=== PATIENT | female | born 1995 | race Caucasian/White ===

== ENCOUNTER 2021-12-03 13:38 | Emergency (ER) | payer OTHER, SELFPAY ==
--- NOTE | 2021-12-03 13:42 | ED.ANIMALBIT ---
HPI - Animal Bite General Chief Complaint: Skin/Abscess/Foreign Body Stated Complaint: Dog bite Time Seen by Provider: 12/03/21 13:42 Source: patient and RN notes reviewed History of Present Illness HPI narrative: Patient is a 25-year-old female who presents the urgent care with complaints of a dog bite to the left thumb. Patient states that it occurred at work at approximately 11 AM and she did clean it with plain Dial soap and water. Patient states that the dog is up-to-date on his vaccinations and rabies shot. Patient is not up-to-date on her tetanus. Patient denies of any other injuries or dog bites. No other acute complaints. No acute distress noted. Patient aware of the plan of care. Some parts of this dictation were generated by voice recognition software and may contain typographical and/or grammatical inaccuracies. Related Data Home Medications Medication Instructions Recorded Confirmed fluvoxamine mg 12/03/21 levonorgestrel [Mirena] INTRAUTERINE 12/03/21 lithium carbonate mg 12/03/21 trazodone 12/03/21 Allergies Allergy/AdvReac Type Severity Reaction Status Date / Time Penicillins Allergy Hives Verified 12/03/21 13:51 Review of Systems Review of Systems: CONSTITUTIONAL: Denies fever, chills, or sweats. EYES: Denies visual changes, redness, or discharge. ENT: Denies rhinorrhea, congestion, sore throat, or otalgia. CARDIOVASCULAR: Denies chest pain, palpitations, or edema. RESPIRATORY: Denies cough or dyspnea. GASTROINTESTINAL: Denies abdominal pain, nausea, vomiting, or diarrhea. GENITOURINARY: Denies dysuria or hematuria. SKIN: Reports of a dog bite to the left thumb MUSCULOSKELETAL: Denies back pain, joint pain, or myalgia. NEUROLOGIC: Denies headache, numbness, or weakness. All other systems reviewed are negative, except as documented in HPI. PMFSH Comments At the time of my signature, I reviewed and agree with the nursing past medical, surgical, social, and family history. There is no relevant family history pertinent to the patient complaint. Exam Narrative: GENERAL: This is a well-nourished, well-developed patient, in no apparent distress. HEAD: normocephalic, atraumatic. EYES: PERRL. Sclera clear/white. Vision is grossly intact. EARS: External ears normal NOSE: External nose normal with no obvious nasal discharge, nares without redness, no rhinorrhea. THROAT: Mucous membranes moist NECK: Neck supple SKIN: Pinpoint puncture wound noted to the dorsal radial aspect of the left thumb with superficial abrasion NEURO: awake, alert, and oriented to person, place and time. There were no obvious focal neurologic abnormalities. EXTREMITIES: Range of motion of left upper extremity within normal limits. Positive strong left radial pulse with capillary refill less than 2 seconds. Course Course Level of Care: Express Care Visit Vital Signs Vital signs: Vital Signs Temperature 98.0 F 12/03/21 13:53 Pulse Rate 81 12/03/21 13:53 Respiratory Rate 16 12/03/21 13:53 Blood Pressure 124/74 12/03/21 13:53 Pulse Oximetry 99 12/03/21 13:53 Temperature 98.0 F 12/03/21 13:53 Pulse Rate 81 12/03/21 13:53 Respiratory Rate 16 12/03/21 13:53 Blood Pressure 124/74 12/03/21 13:53 Pulse Oximetry 99 12/03/21 13:53 Reviewed MDM - Animal Bite MDM Narrative Medical decision making narrative: Advised the patient to keep the wound clean with plain Dial soap and water. May use Neosporin as needed. It is galan to keep the wound open to air however if it is at risk of being soiled, or while you are working, recommend wearing a glove or keeping the wound covered. This wound does not hinder your abilities for work. Follow-up workplace guidelines on when to return. Complete the oral antibiotic regimen as prescribed. Be sure to eat and drink with the medication. You are now up-to-date on your tetanus shot. Be aware of signs and symptoms of infection such as redness, swelling or drainage f
[2021-12-03 13:53] VITALS: BP 124/74; PULSE 81; RESP 16; TEMP 36.7; O2SAT 99
[2021-12-03] MEDS: TETANUS,DIPHTHERIA,AC PERTUSSIS ADULT (0.5 ML) BOOSTRIX IM (14:17)
== END 2021-12-03 14:38 | disposition home or self-care (01) ==
PROVIDERS: Emergency Provider Nurse Practitioner Family
DX: S61.032A Puncture wound without foreign body of left thumb without damage to nail, initial encounter (principal); W54.0XXA Bitten by dog, initial encounter; Z23 Encounter for immunization; I10 Essential (primary) hypertension; Z86.16 Personal history of COVID-19; F31.9 Bipolar disorder, unspecified; F43.10 Post-traumatic stress disorder, unspecified
CPT/HCPCS: 90471; 90715; 99213; G0463

== ENCOUNTER 2024-06-08 18:54 | Emergency (ER) | payer BC, SELFPAY ==
--- NOTE | ~2024-06-08 | XR_ITS ---
CHEST RADIOGRAPH, PA AND LATERAL CLINICAL HISTORY: cp, hx of high BP . COMPARISON: None available TECHNIQUE: PA and lateral views of the chest. FINDINGS The cardiomediastinal silhouette is unremarkable. The lungs are clear. Visualized osseous structures and soft tissues are unremarkable. IMPRESSION: No focal infiltrate or effusion. Reviewed, dictated and finalized at location A.
--- NOTE | 2024-06-08 18:59 | ECG_ITS ---
Test Date: 2024-06-08 19:04:24 Measurements Intervals [place] Rate: 80 P: 44 PA: 135 QRS: 58 QRSD: 81 T: 28 QT: 356 QTc: 412 Interpretive Statements SINUS RHYTHM NONSPECIFIC T-WAVE ABNORMALITY ABNORMAL ECG No previous ECG available for comparison Electronically Signed On 06-09-2024 13:11:25 CDT by Erick Morel M.D.
[2024-06-08 19:04] VITALS: BP 149/103; PULSE 88; RESP 17; TEMP 36.6; O2SAT 100
[2024-06-08 19:21] LABS: Basophils Percent Auto 0.5 % (0.2-1.2); Eosinophils Absolute Auto 0.1 K/mm3 (0-0.3); Eosinophils Percent Auto 0.8 % (0-4.4); Hemoglobin 13.4 g/dL (12.0-15.0); Immature Granulocyte Absolute 0.02 K/mm3 (0.00-0.031); Immature Granulocyte Percent A 0.2 % (0-0.5); Lymphocytes Absolute Auto 2.76 K/mm3 (0.9-3.2); Lymphocytes Percent Auto 33.1 % (18.3-44.2); Mean Corpuscular HGB Conc 34.4 g/dl (32-36); Mean Corpuscular Volume 93.1 fl (80-100); Mean Platelet Volume 10.5 fl (7.4-10.4); Monocytes Absolute Auto 0.8 K/mm3 (0.1-0.6); Monocytes Percent Auto 9.6 % (2.6-8.5); Neutrophils Absolute Auto 4.7 K/mm3 (1.3-6.7); Neutrophils Percent Auto 55.8 % (45.5-73.1); Platelet Count Result 215 k/mm3 (150-375); Red Blood Count 4.19 M/mm3 (4.2-5.4); Red Cell Distribution Width 12.8 % (11.5-14.5); White Blood Count 8.3 K/mm3 (4.5-10.0)
[2024-06-08 19:32] LABS: Partial Thromboplastin Time 32.4 Seconds (22.3-36.8); Prothrombin Time 13.8 Seconds (11.1-14.7)
[2024-06-08 19:40] LABS: Alanine Aminotransferase 29 U/L (6-35); Albumin Level 4.6 g/dL (3.5-5.1); Alkaline Phosphatase 46 U/L (38-126); Anion Gap 10 mmol/L (4-12); Aspartate Amino Transferase 38 U/L (14-36); Bilirubin,Total 0.9 mg/dL (0.2-1.3); Blood Urea Nitrogen 14 mg/dL (7-17); Calcium 9.2 mg/dL (8.4-10.2); Carbon Dioxide 23 mmol/L (22-30); Chloride 107 mmol/L (98-107); Estimated CRCL calculation 99 ml/min; Estimated Glomerular Filt Rate > 60; Glucose 88 mg/dL (65-110); Lipase 270 U/L (23-300); Potassium 3.6 mmol/L (3.4-5.0); Sodium 140 mmol/L (137-145)
[2024-06-08 19:55] LABS: Troponin I < 0.012 ng/mL (0.000-0.034)
--- NOTE | 2024-06-08 22:24 | ECG_ITS ---
Test Date: 2024-06-08 22:31:49 Measurements Intervals [place] Rate: 79 P: 53 SC: 143 QRS: 63 QRSD: 79 T: 35 QT: 367 QTc: 422 Interpretive Statements SINUS RHYTHM WITH SINUS ARRHYTHMIA NONSPECIFIC T-WAVE ABNORMALITY ABNORMAL ECG Compared to ECG 06/08/2024 19:04:24 No significant changes Electronically Signed On 06-09-2024 13:13:06 CDT by Erick Morel M.D.
[2024-06-08 22:46] VITALS: BP 133/82; PULSE 79; RESP 14; O2SAT 98
[2024-06-08 23:05] VITALS: BP 130/81; PULSE 76; RESP 16; O2SAT 99
[2024-06-08 23:11] LABS: Troponin I < 0.012 ng/mL (0.000-0.034)
[2024-06-08 23:49] VITALS: BP 135/81; PULSE 70; RESP 15; TEMP 36.7; O2SAT 99
--- NOTE | 2024-06-09 00:17 | ED.CHESTPAIN ---
HPI - Chest Pain General Chief Complaint: Chest Pain Stated Complaint: chest pain Time Seen by Provider: 06/08/24 23:18 Source: patient Mode of arrival: ambulatory Limitations: no limitations History of Present Illness HPI narrative: This is a 28-year-old female that presents to the emergency department for chest pain. Ongoing since earlier today. Reports initially she thought she was having trouble with reflux. It persisted and started to worsen with breathing which brought her in for evaluation. Denies fever, cough, lower extremity edema. Related Data Home Medications Medication Instructions Recorded Confirmed fluvoxamine 25 mg tablet 25 mg PO DAILY 12/03/21 12/03/21 levonorgestrel 21 mcg/24 hr (up to 20 mcg intrauterine USEASDIRECTD 12/03/21 12/03/21 8 years) 52 mg intrauterine device (Mirena) lithium carbonate 300 mg capsule 300 mg PO USEASDIRECTD 12/03/21 12/03/21 trazodone 100 mg tablet 100 mg PO HS 12/03/21 12/03/21 Allergies Allergy/AdvReac Type Severity Reaction Status Date / Time Penicillins Allergy Hives Verified 12/03/21 13:51 Review of Systems Review of Systems: CONSTITUTIONAL: Denies fever CARDIOVASCULAR: Reports chest pain. Denies palpitations, or edema. RESPIRATORY: Denies cough or dyspnea. All systems reviewed & are unremarkable except as noted in HPI and below PMFSH Past Medical History Medical History (Updated 06/09/24 @ 01:05 by Cherri Carrillo PA-C) History of hyperlipidemia History of hypertension Social History Social History (Updated 06/09/24 @ 00:22 by Cherri Carrillo PA-C) Smoking status: Current every day smoker Exam Narrative: GENERAL: Well-appearing, well-nourished, and in no acute distress. HEAD: Normocephalic, atraumatic. EYES: EOMI. NECK: Supple. No JVD CHEST: Clear to auscultation. No respiratory distress. No wheezes rales or rhonchi HEART: Regular rate and rhythm. No murmur heard. Normal peripheral pulses. EXTREMITIES: Normal range of motion. No edema. SKIN: Warm, dry, no rash. NEURO: No focal deficits. Alert and oriented x3. PSYCH: Normal mood and affect Course Course Emergency Course: Patient updated on workup and agrees with plan of care Vital Signs Vital signs: Vital Signs Temperature 97.8 F 06/08/24 19:04 Pulse Rate 88 06/08/24 19:04 Respiratory Rate 17 06/08/24 19:04 Blood Pressure 149/103 H 06/08/24 19:04 Pulse Oximetry 100 06/08/24 19:04 Oxygen Delivery Room Air 06/08/24 19:04 Temperature 98.1 F 06/08/24 23:49 Pulse Rate 70 06/08/24 23:49 Respiratory Rate 15 06/08/24 23:49 Blood Pressure 135/81 06/08/24 23:49 Pulse Oximetry 99 06/08/24 23:49 Oxygen Delivery Room Air 06/08/24 23:48 MDM - Chest Pain MDM Narrative Medical decision making narrative: Patient presents to the emergency department for chest pain today. Her vitals are stable. CBC and metabolic panel without concerning findings. EKG without concerning changes and baseline and 3 hour troponin are negative. Chest x-ray without acute cardiopulmonary abnormality. D-dimer is not elevated. Patient updated on workup and agrees with plan of care. She is to follow up with primary provider. She was given warnings to return to the ER Differential Diagnosis Differential diagnosis: Likely atypical chest pain, costochondritis and other (pneumonia, PE, GERD) Lab Data Attestation: I reviewed the patient's lab results. 06/08/24 19:14 06/08/24 19:14 Labs: Lab Results 06/08/24 06/08/24 06/09/24 Range/Units 19:14 22:45 00:30 WBC 8.3 (4.5-10.0) K/mm3 RBC 4.19 L (4.2-5.4) M/mm3 Hgb 13.4 (12.0-15.0) g/dL Hct 39.0 (37.0-47.0) % MCV 93.1 (80-100) fl MCH 32.0 (26-34) pg MCHC 34.4 (32-36) g/dl RDW 12.8 (11.5-14.5) % Plt Count 215 (150-375) k/mm3 MPV 10.5 H (7.4-10.4) fl Immature Gran % (Auto) 0.2 (0-0.5) % Neut % (Auto) 55.8 (45.5-73.1) % Lymph % (Auto) 33.1 (18.3-44.2) % [place] % (Auto) 9.6 H (2.6-8.5) % Eos % (Auto) 0.8 (0-4.4) % Baso % (Auto) 0.5 (0.2-1.2) % Lymph # (Auto) 2.76 (0.9-3.2) K/mm3 [place] # (Auto) 0.8 H (0.1-0.6) K/mm3 Eos # (Auto) 0.1 (0-0.3) K/mm3 Baso # (Auto) 0.0 (0.0-0.1) K/mm3 Abs Immat Gran (auto) 0.02 (0.00-0.031) K/mm3 Absolute Neuts (auto) 4.7 (1.3-6.7) K/mm3 Absolute Nucleated RBC 0.000 (0.0-0.012) K/mm3 Nucleated RBC % 0.0 (0.0-0.2) % PT 13.8 (11.1-14.7) Seconds INR 1.0 APTT 32.4 (22.3-36.8) Seconds D-Dimer < 0.27 (<0.48) ug/mL Sodium 140 (137-145) mmol/L Potassium 3.6 (3.4-5.0) mmol/L Chloride 107 (98-107) mmol/L Carbon Dioxide 23 (22-30) mmol/L Anion Gap 10 (4-12) mmol/L BUN 14 (7-17) mg/dL Creatinine 0.80 (0.7-1.0) mg/dL Estim Creat Clear Calc 99 ml/min Estimated GFR > 60 (59 - ) Glucose 88 (65-110) mg/dL Calcium 9.2 (8.4-10.2) mg/dL Total Bilirubin 0.9 (0.2-1.3) mg/dL AST 38 H (14-36) U/L ALT 29 (6-35) U/L Alkaline Phosphatase 46 (38-126) U/L Troponin I < 0.012 < 0.012 < 0.012 (0.000-0.034) ng/mL Total Protein 8.0 (6.3-8.2) g/dL Albumin 4.6 (3.5-5.1) g/dL Lipase 270 (23-300) U/L Imaging Data Radiologist's impression: ITS Impressions Chest X-Ray 06/08/24 19:35 IMPRESSION: No focal infiltrate or effusion. ECG Data EKG #1: ECG completion date: 06/08/24 EKG Interpretation: normal rate, sinus rhythm, no ST changes and normal QT Critical Care Time Critical Care Time Critical Care Time: No Discharge Plan Discharge Clinical Impression: Atypical chest pain Patient Disposition: Home, Self-Care Condition: Stable Instructions: Chest Pain (ED) Additional Instructions: Return to the ER if you experience fever, chest pain, shortness of breath, abdominal pain with nausea and vomiting, you are unable to keep down liquids or solids, or any other symptoms that are concerning to you Follow up with your primary care doctor Prescriptions: No Action Mirena 20 mcg/24 hours (7 yrs) 52 mg Intrauterine Device 20 mcg INTRAUTERINE USEASDIRECTD trazodone 100 mg Tablet 100 mg PO HS fluvoxamine 25 mg Tablet 25 mg PO DAILY lithium carbonate 300 mg Capsule 300 mg PO USEASDIRECTD doxycycline monohydrate 100 mg capsule 100 mg PO BID Qty: 14 0RF Follow-up/Referrals: UNKNOWN,DOCTOR [Primary Care Provider] - Quality HEART score for chest pain patients History: slightly suspicious ECG: normal Age: < or = to 45 years Risk factors: 1 or 2 risk factors Troponin: < or = to 1x normal limit Heart score: 1
[2024-06-09] MEDS: KETOROLAC 15 MG/ML VIAL (*BKC) IV PUSH (00:29)
[2024-06-09] MEDS: PANTOPRAZOLE SODIUM IV 40 MG VIAL IV PUSH (00:29)
[2024-06-09 00:54] LABS: D Dimer < 0.27 ug/mL (<0.48)
[2024-06-09 00:56] LABS: Troponin I < 0.012 ng/mL (0.000-0.034)
[2024-06-09 01:26] VITALS: BP 119/78; PULSE 78; RESP 14; TEMP 36.7; O2SAT 99
== END 2024-06-09 01:26 | disposition home or self-care (01) ==
PROVIDERS: Emergency Medicine; Emergency Provider Physician Assistant
DX: R07.89 Other chest pain (principal); E78.5 Hyperlipidemia, unspecified; I10 Essential (primary) hypertension; F17.200 Nicotine dependence, unspecified, uncomplicated; Z97.5 Presence of (intrauterine) contraceptive device; Z79.899 Other long term (current) drug therapy; R94.31 Abnormal electrocardiogram [ECG] [EKG]
CPT/HCPCS: 36415; 71046; 80053; 83690; 84484; 85025; 85380; 85610; 85730; 93005; 96374; 96375; 99284; J1885; J2470